=== PATIENT | female | born 1990 | race Caucasian/White ===

== ENCOUNTER 2020-05-26 12:26 | Emergency (ER) | payer BC, OTHER ==
[2020-05-27 16:08] LABS: SARS-CoV-2 MS2 Positive; SARS-CoV-2 N Gene Negative; SARS-CoV-2 S Gene Negative; SARS-CoV-2 orf1ab Negative
== END 2020-05-26 12:43 | disposition home or self-care (01) ==
LOC: ERS 12:26
DX: Z20.828 Contact with and (suspected) exposure to other viral communicable diseases (principal)
CPT/HCPCS: 87635; 99283; U0003

== ENCOUNTER 2020-09-23 09:31 | Outpatient (CLI) | payer BC, OTHER ==
[2020-09-23 17:50] LABS: SARS-CoV-2 MS2 Positive; SARS-CoV-2 N Gene Negative; SARS-CoV-2 S Gene Negative; SARS-CoV-2 by NAA Not Detected (NotDetected); SARS-CoV-2 orf1ab Negative
== END 2020-09-23 09:32 | disposition home or self-care (01) ==
LOC: LABBT 09:31
PROVIDERS: ATTEND Obstetrics & Gynecology
DX: Z20.828 Contact with and (suspected) exposure to other viral communicable diseases (principal)
CPT/HCPCS: 87635; U0003

== ENCOUNTER 2020-09-28 05:30 | Inpatient (IN) | payer BC ==
[2020-09-28 06:23] VITALS: BMI 33.2
[2020-09-28] MEDS ORDERED: hydrALAZINE 20 MG/ML VIAL SLOW IVP PRN ×2 (06:43→23:25)
[2020-09-28] MEDS ORDERED: HYDROcodone/Acetaminophen 5/325 mg Tablet PO PRN ×4 (06:43→23:25)
[2020-09-28] MEDS ORDERED: NS / Oxytocin 40 units/1000ml 1,000 ML IV PRN (06:43)
[2020-09-28] MEDS ORDERED: Ibuprofen 800 MG TAB PO PRN (06:43)
[2020-09-28] MEDS ORDERED: Ondansetron PF 4 MG/2 ML Vial IVP PRN ×2 (06:43→23:25)
[2020-09-28] MEDS ORDERED: Promethazine HCl 25 MG/ML VIAL IM PRN ×2 (06:43→23:25)
[2020-09-28] MEDS ORDERED: Butorphanol Tartrate 1 MG/ML VIAL SLOW IVP PRN (06:43)
[2020-09-28] MEDS ORDERED: Lactated Ringer's 1,000 ML IV SCH (06:43)
[2020-09-28] MEDS ORDERED: Lidocaine 1% (PF) 30 ML VIAL SC PRN (06:43)
[2020-09-28 07:07] LABS: Hemoglobin 10.5 g/dL (12.0-16.0); Mean Corpuscular Volume 77.1 fL (78.0-98.0); Mean Platelet Volume 10.1 fL (7.4-10.4); Platelet Count 187 thou/uL (130-400); RBC Distribution Width 14.1 % (11.5-14.5); Red Blood Cell (RBC) Count 3.89 mill/uL (4.20-5.40); White Blood Cell (WBC) Count 10.2 thou/uL (4.8-10.8)
[2020-09-28] MEDS: NS w/ Oxytocin 10 units 500 ML IV SCH ×2 (07:35→16:57)
[2020-09-28 07:39] LABS: HBSAg Index 0.11 S/CO (0-0.99); Hep B Surf Ag Non-Reactive S/CO (NonReactive); Syphilis Antibody Nonreactive (Nonreactive); Syphilis Antibody Index 0.03 S/CO (<1.00 Non-Reactive)
[2020-09-28] MEDS ORDERED: Bupivacaine/Epinephrine 0.25% 30 ML VIAL ONE (12:15)
[2020-09-28] MEDS ORDERED: Fentanyl 4 mcg/Bup 0.1% Cadd 100 ML ONE (14:27)
[2020-09-28] MEDS: Lactated Ringer's 1,000 ML IV SCH ×2 (15:44→18:50)
[2020-09-28] MEDS ORDERED: Lidocaine 1% (PF) 30 ML VIAL ONE (19:03)
[2020-09-28] MEDS ORDERED: NS / Oxytocin 40 units/1000ml 1,000 ML ONE (19:03)
[2020-09-28] MEDS ORDERED: Lanolin Ointment 7 GM TUBE TOP PRN (23:25)
[2020-09-28] MEDS ORDERED: diphenhydrAMINE 25 MG CAP PO PRN (23:25)
[2020-09-28] MEDS ORDERED: Milk Of Magnesia 30 ML UDCUP PO PRN (23:25)
[2020-09-28] MEDS ORDERED: Preparation H Ointment 28 GM TUBE PR PRN (23:25)
[2020-09-28] MEDS ORDERED: Zolpidem Tartrate 5 MG TAB PO PRN (23:25)
[2020-09-28] MEDS ORDERED: NS / Oxytocin 40 units/1000ml 1,000 ML IV SCH (23:25)
[2020-09-28] MEDS ORDERED: Bisacodyl 10 MG SUPP PR PRN (23:25)
[2020-09-28] MEDS ORDERED: Benzocaine-Menthol 82.5 ML CAN TOP PRN (23:25)
[2020-09-29] MEDS: Ibuprofen 800 MG TAB PO SCH ×3 (01:05→17:16)
[2020-09-29] MEDS: Ferrous Sulfate 325 MG TAB PO SCH ×2 (08:54→17:17)
[2020-09-29] MEDS ORDERED: Adacel (T-DAP) 0.5 ML SYRINGE IM ONE (09:00)
[2020-09-29] MEDS ORDERED: Prenatal Vitamin 1 TAB PO SCH (09:00)
[2020-09-29] MEDS: Docusate Calcium (SURFAK) 240 MG CAP PO SCH ×2 (09:29→20:59)
--- NOTE | 2020-09-29 12:05 | PDOC.PP ---
Post Progress Note Post Day #: 1 PO intake tolerated: yes Flatus: yes Ambulation: yes Vital Signs (12 hours) Temp Pulse Resp BP Pulse Ox 09/29/20 11:28 97.9 F 80 20 134/85 09/29/20 07:46 97.8 F 79 20 137/87 97 09/29/20 07:45 97 09/29/20 04:00 98.2 F 89 18 118/64 98 09/29/20 02:00 98.7 F 84 18 125/60 09/29/20 01:05 98.9 F 89 18 127/62 09/29/20 00:05 98.5 F 86 18 140/75 97 Weight Weight 212 lb - Physical Examination General: NAD Cardiovascular: no m/r/g, RRR Respiratory: clear to auscultation bilaterally, non-labored breathing Abdominal: lochia, no distention Extremities: negative homans (B) Neurological: no gross focal deficits Psychiatric: A&Ox3, normal affect Result Diagrams: 09/28/20 06:56 Additional Labs: Post Labs Hep Bs Antigen Non-Reactive S/CO (NonReactive) 09/28/20 06:56 Blood Type O POSITIVE 09/28/20 07:15 - Assessment/Plan doing well routine care. dc in am
[2020-09-30] MEDS: Lactated Ringer's 1,000 ML IV SCH (00:12)
[2020-09-30] MEDS: Ibuprofen 800 MG TAB PO SCH (01:06)
[2020-09-30 08:18] VITALS: BP 128/89; TEMP 97.9
== END 2020-09-30 14:00 | disposition home or self-care (01) | DRG 807 ==
LOC: L&D 05:43 → 3SW 09-29 00:22
PROVIDERS: ADMIT Obstetrics & Gynecology; ATTEND Obstetrics & Gynecology
PROC: 10E0XZZ Delivery of Products of Conception, External Approach (ICD-10-PCS; principal; 2020-09-28)
PROC: 0KQM0ZZ Repair Perineum Muscle, Open Approach (ICD-10-PCS; 2020-09-28)
PROC: 10907ZC Drainage of Amniotic Fluid, Therapeutic from Products of Conception, Via Natural or Artificial Opening (ICD-10-PCS; 2020-09-28)
DX: O48.0 Post-term pregnancy (principal); Z37.0 Single live birth; Z3A.40 40 weeks gestation of pregnancy; O70.1 Second degree perineal laceration during delivery
CPT/HCPCS: 36415; 51702; 85027; 86780; 86850; 86900; 86901; 87340; J2590